=== PATIENT | male | born 1960 | race Caucasian/White ===

== ENCOUNTER 2018-04-10 06:22 | Emergency (ER) | payer BC ==
[2018-04-10] MEDS ORDERED: Al Hydrox/Mg Hydrox/Simet LIQ* 30 ML UDC PO ONE (06:39)
[2018-04-10] MEDS ORDERED: Famotidine IV* 10 MG/ML 2 ML (20 mg) IV ONE (06:39)
--- NOTE | 2018-04-10 06:53 | ED ---
Abdominal Pain/Male - HPI Summary HPI Summary: Patient is a 57-year-old male 1 PPD smoker presenting to the ED with epigastric pain and burning which has been intermittent 5 days. He states pain is worse after eating, better without. Not worse or better with positioning. He is also been endorsing 5 days of profuse diarrhea over 10 times per day. He denies any malodorous or yellow diarrhea. He states he has never had the diarrhea before, however has had a history of epigastric pain and tenderness and was diagnosed with peptic ulcers at [place] several months prior. He was given a 30 day supply of omeprazole. He was told to take this for one month only. Symptoms resolved while taking this medication, however have since returned. He is currently taking no medications. While pain is worse to the epigastric area, he is also complaining of diffuse tenderness throughout the abdomen which she describes as a "burning." He states he is otherwise healthy. Denies any travel or sick contacts. Symptoms resolved only temporarily with OTC Rolaids. He denies any chest pain or shortness of breath. Denies any headache. No recent unintentional weight loss, odynophagia, dysphagia. - History of Current Complaint Chief Complaint: EDNauseaVomitDiarrh Stated Complaint: ABD PAIN Time Seen by Provider: 04/10/18 06:30 Hx Obtained From: Patient Onset/Duration: Sudden Onset, Lasting Days Timing: Constant Severity Initially: Moderate Severity Currently: Moderate Pain Intensity: 0 Pain Scale Used: 0-10 Numeric Location: Diffuse, Other - worse to epigastric region Radiates: No Character: Burning Aggravating Factor(s): Food Alleviating Factor(s): NPO Associated Signs And Symptoms: Positive: Nausea, Vomiting, Diarrhea. Negative: Diaphoresis, Fever, Cough, Chest Pain, Blood in Stool - Risk Factors Testicular Torsion: Negative Cardiac Risk Factors: Negative - Allergies/Home Medications Allergies/Adverse Reactions: Allergies Allergy/AdvReac Type Severity Reaction Status Date / Time No Known Allergies Allergy Verified 04/10/18 06:25 PMH/Surg Hx/FS Hx/Imm Hx Previously Healthy: Yes - Immunization History Hx Pertussis Vaccination: No Immunizations Up to Date: Yes Infectious Disease History: No Infectious Disease History: Denies: Traveled Outside the [place] in Last 30 Days - Social History Occupation: Employed Full-time Lives: Alone Alcohol Use: None Hx Substance Use: No Substance Use Type: Reports: None Hx Tobacco Use: Yes Smoking Status (MU): Heavy Every Day Tobacco Smoker Review of Systems Constitutional: Negative Negative: Fever, Chills, Fatigue, Skin Diaphoresis Negative: Palpitations, Chest Pain Negative: Shortness Of Breath, Cough Positive: Abdominal Pain, Vomiting, Diarrhea, Nausea Genitourinary: Negative Positive: no symptoms reported, see HPI Negative: Arthralgia, Myalgia Skin: Negative Neurological: Negative All Other Systems Reviewed And Are Negative: Yes Physical Exam Triage Information Reviewed: Yes Vital Signs On Initial Exam: Initial Vitals Temp Pulse Resp BP Pulse Ox 98.2 F 81 16 148/89 97 04/10/18 06:25 04/10/18 06:25 04/10/18 06:25 04/10/18 06:25 04/10/18 06:25 Vital Signs Reviewed: Yes Appearance: Positive: Well-Appearing, Well-Nourished Skin: Positive: Warm, Skin Color Reflects Adequate Perfusion Head/Face: Positive: Normal Head/Face Inspection Eyes: Positive: EOMI, ROLANDO Neck: Positive: Supple, Nontender, No Lymphadenopathy Respiratory/Lung Sounds: Positive: Clear to Auscultation, Breath Sounds Present Cardiovascular: Positive: RRR, Pulses are Symmetrical in both Upper and Lower Extremities Abdomen Description: Positive: Soft, Other: - tenderness ot the epigastric region and diffuse tenderness throughout abdomen on deep palpation. Negative: CVA Tenderness (R), CVA Tenderness (L), Distended, Guarding Musculoskeletal: Positive: Strength/ROM Intact Neurological: Positive: Alert, Oriented to Person Place, Time, Speech Normal Psychiatric: Positive: Normal, Affect/Mood Appropriate AVPU Assessment: Alert Diagnostics - Vital Signs Vital Signs Temp Pulse Resp BP Pulse Ox 04/10/18 06:25 98.2 F 81 16 148/89 97 - Laboratory Result Diagrams: 04/10/18 06:58 04/10/18 06:58 Lab Statement: Any lab studies that have been ordered have been reviewed, and results considered in the medical decision making process. Abdominal Pain Fem Course/Dx - Course Course Of Treatment: On physical examination, there is diffuse tenderness to the abdomen on deep palpation, however not light palpation. There is tenderness on my palpation to the epigastric region. At home Rolaids with minimal relief. He is given famotidine and Maalox in the ED. Labs obtained and are WNL. He is given omeprazole as prescription and is encouraged to follow -up with GI. Discussed he may need an endoscopy for further evaluation of his chronic gastritis. Due to symptoms worsening after food intake, this is likely peptic ulcer as opposed to duodenal ulcer. He is encouraged to stop smoking as symptoms likely are worsening with smoking history. He is feeling improved after Maalox and famotidine. He is also given Zofran as prescription. Troponin 0.00. - Diagnoses Differential Diagnosis/HQI/PQRI: Peptic Ulcer Disease, Other - Gastritis, duodenal ulcer, GERD, abdominal pain, diarrhea Provider Diagnoses: Peptic ulcer disease Discharge - Sign-Out/Discharge Documenting (check all that apply): Patient Departure - Discharge Plan Condition: Stable Disposition: HOME Prescriptions: Al Hydrox/Mg Hydrox/Simet LIQ* [Maalox Plus*] 30 ml PO Q4H PRN #1 udc PRN Reason: Pain Omeprazole 40 mg PO DAILY #30 capsule. Ondansetron ODT TAB* [Zofran 4 MG Odt TAB*] 4 mg PO Q6H PRN #12 tab.odt MDD 4 PRN Reason: Nausea Patient Education Materials: Peptic Ulcer (ED), Diet for Stomach Ulcers and Gastritis (ED) Referrals: No Primary Care Phys,NOPCP [Primary Care Provider] - Sudeep Nicole MD [Medical Doctor] - Additional Instructions: Omeprazole once daily Maalox every 4 hours as needed for epigastric pain Zofran as needed for nausea Please follow-up with a GI specialist If any symptoms become worse, return to the ED - Billing Disposition and Condition Condition: STABLE Disposition: Home
[2018-04-10 07:19] LABS: ABS Basophils 0.1 10^3/ul (0-0.2); ABS Eosinophils 0.2 10^3/ul (0-0.6); ABS Lymphocytes 1.8 10^3/ul (1.0-4.8); ABS Monocytes 0.7 10^3/ul (0-0.8); ABS Neutrophils 6.9 10^3/ul (1.5-7.7); ABS Nucleated RBC 0 10^3/ul; Eosinophil % 1.8 % (0-6); Hematocrit 43 % (42-52); Hemoglobin 14.8 g/dl (14.0-18.0); Lymphocyte % 18.6 % (25-47); Mean Corpuscular HGB Conc 34 g/dl (31-36); Mean Corpuscular Hemoglobin 31 pg (27-31); Mean Corpuscular Volume 91 fL (80-94); Mean Platelet Volume 8.6 um3 (7.4-10.4); Nucleated Red Blood Cells % 0; Platelet Count 300 10^3/ul (150-450); Red Blood Count 4.77 10^6/ul (4.00-5.40); Red Cell Distribution Width 14 % (10.5-15); White Blood Count 9.6 10^3/ul (3.5-10.8)
[2018-04-10 07:33] LABS: EGFR Non-African American 90.4 (>60)
[2018-04-10] MEDS ORDERED: Ondansetron INJ* 2 MG/ML VIAL IV ONE (07:41)
[2018-04-10 08:34] VITALS: BP 148/98
== END 2018-04-10 08:32 | disposition home or self-care (01) ==
LOC: ED 06:22
DX: K27.9 Peptic ulcer, site unspecified, unspecified as acute or chronic, without hemorrhage or perforation (principal); Z72.0 Tobacco use
CPT/HCPCS: 36415; 80053; 82140; 83605; 83690; 83735; 84484; 85025; 86140; 87045; 87046; 87899; 96374; 96375; 96376; 99283; A9270-GY

== ENCOUNTER 2018-05-17 09:37 | Emergency (ER) | payer BC ==
[2018-05-17 09:54] VITALS: BP 150/100
--- NOTE | 2018-05-17 12:10 | UC ---
Abdominal Pain Male HPI - HPI Summary HPI Summary: Patient currently being worked up by GI for possible peptic ulcer and gastritis. Comes in today with worsening intermittent epigastric abdominal pain over the past 2-3 days. Denies fever but does have some nausea and watery stools. Has missed 2 days of work. - History of Current Complaint Chief Complaint: UCAbdominalPain Stated Complaint: ABD PAIN Time Seen by Provider: 05/17/18 09:59 Hx Obtained From: Patient Onset/Duration: Gradual Onset, Lasting Days, Still Present Timing: Intermittent Episodes Lasting: Severity Initially: Moderate Severity Currently: Moderate Pain Intensity: 3 Pain Scale Used: 0-10 Numeric Location: Epigastric Radiates: No Character: Cramping, Sharp Aggravating Factor(s): Nothing Alleviating Factor(s): Nothing Associated Signs And Symptoms: Positive: Decreased Appetite, Nausea, Diarrhea. Negative: Fever, Back Pain, Constipation, Blood in Stool, Urinary Symptoms - Allergies/Home Medications Allergies/Adverse Reactions: Allergies Allergy/AdvReac Type Severity Reaction Status Date / Time No Known Allergies Allergy Verified 05/17/18 09:54 PMH/Surg Hx/FS Hx/Imm Hx Previously Healthy: Yes - Surgical History Surgical History: Yes Surgery Procedure, Year, and Place: Gastric hernia, meniscus - Family History Known Family History: Positive: Hypertension - Social History Alcohol Use: None Substance Use Type: None Smoking Status (MU): Heavy Every Day Tobacco Smoker Type: Cigarettes Amount Used/How Often: 1 PPD Review of Systems Constitutional: Negative Respiratory: Negative Cardiovascular: Negative Gastrointestinal: Abdominal Pain, Diarrhea, Nausea Genitourinary: Negative All Other Systems Reviewed And Are Negative: Yes Physical Exam Triage Information Reviewed: Yes Appearance: Well-Appearing, No Pain Distress, Well-Nourished Vital Signs: Initial Vital Signs Temp 98.9 F 05/17/18 09:47 Pulse 96 05/17/18 09:47 Resp 16 05/17/18 09:47 BP 150/100 05/17/18 09:47 Pulse Ox 100 05/17/18 09:47 Vital Signs Reviewed: Yes Eyes: Positive: Conjunctiva Clear ENT: Positive: Hearing grossly normal Neck: Positive: Supple Respiratory Exam: Normal Cardiovascular Exam: Normal Abdomen Description: Positive: Soft, Other: - epigastric tenderness. Negative: CVA Tenderness (R), CVA Tenderness (L), Distended, Guarding Bowel Sounds: Positive: Present Musculoskeletal: Positive: No Edema Neurological: Positive: Alert Psychological: Positive: Age Appropriate Behavior Skin: Negative: rashes Abd Pain Male Course/Dx - Course Course Of Treatment: ADVISED TO KEEP HIS GI FOLLOW-UP. DISCUSSED POSSIBILITY OF PANCREATITIS. PATIENT DECLINES TRANSFER TO ED TODAY. ADVISED TO GO TO THE ED WITHOUT FAIL IF HE DEVELOPS WORSENING PAIN, NAUSEA, FEVER OR ANY OTHER CONCERNING SYMPTOMS. NOTE FOR WORK PROVIDED. DISCUSSED WITH PATIENT THE NEED FOR COLONOSCOPY IN ADDITION TO HIS SCHEDULED EGD COMING UP. STATES HE WILL ADDRESS THIS WITH HIS GI DOCTOR AT HIS APPOINTMENT. - Differential Dx/Clinical Impression Provider Diagnoses: EPIGASTRIC ABDOMINAL PAIN Discharge - Sign-Out/Discharge Documenting (check all that apply): Patient Departure All imaging exams completed and their final reports reviewed: No Studies - Discharge Plan Condition: Stable Disposition: HOME Patient Education Materials: Abdominal Pain (ED) Forms: *Work Release Referrals: Sudeep Nicole MD [Primary Care Provider] - (KEEP YOUR APPT SCHEDULED) Additional Instructions: GO TO THE ED WITHOUT FAIL IF YOU DEVELOP WORSENING PAIN, FEVER, NAUSEA, BLOOD PER RECTUM OR ANY OTHER CONCERNING SYMPTOMS. - Billing Disposition and Condition Condition: STABLE Disposition: Home
== END 2018-05-17 10:45 | disposition home or self-care (01) ==
LOC: UCEAST 09:37
DX: R10.13 Epigastric pain (principal); R11.0 Nausea; R19.7 Diarrhea, unspecified; F17.210 Nicotine dependence, cigarettes, uncomplicated
CPT/HCPCS: 99211; G0463

== ENCOUNTER 2018-09-07 06:09 | Emergency (ER) | payer BC ==
[2018-09-07] MEDS ORDERED: Ibuprofen TAB* 400 MG PO ONE (06:21)
[2018-09-07] MEDS ORDERED: Amoxicillin/Clavulanate TAB* 875 MG PO ONE (06:22)
--- NOTE | 2018-09-07 06:23 | ED ---
Throat Pain/Nasal Congestion - HPI Summary HPI Summary: This patient is a 58 year old M presenting to ED with a chief complaint of R ear pain since 0500 this morning. He states that he had dx of the flu 3 days ago and has been taking his abx. The patient rates the pain 4/10 in severity. Symptoms aggravated by nothing. Symptoms alleviated by nothing. Patient reports fever (100.5F). - History of Current Complaint Chief Complaint: EDEarPain Time Seen by Provider: 09/07/18 06:17 Hx Obtained From: Patient Onset/Duration: Sudden Onset, Lasting Hours, Still Present Severity: Moderate - 4/10 - Allergies/Home Medications Allergies/Adverse Reactions: Allergies Allergy/AdvReac Type Severity Reaction Status Date / Time No Known Allergies Allergy Verified 08/04/18 15:46 PMH/Surg Hx/FS Hx/Imm Hx Endocrine/Hematology History: Denies: Hx Diabetes Cardiovascular History: Denies: Hx Hypertension - Surgical History Surgery Procedure, Year, and Place: Gastric hernia, meniscus Infectious Disease History: No Infectious Disease History: Denies: Traveled Outside the [place] in Last 30 Days - Family History Known Family History: Positive: Hypertension - Social History Alcohol Use: None Hx Substance Use: No Substance Use Type: Reports: None Hx Tobacco Use: Yes Smoking Status (MU): Heavy Every Day Tobacco Smoker Type: Cigarettes Amount Used/How Often: 1 PPD Review of Systems Positive: Fever, Other - flu symptoms Positive: Ear Ache - right All Other Systems Reviewed And Are Negative: Yes Physical Exam - Summary Physical Exam Summary: VITAL SIGNS: Reviewed. GENERAL: Patient is a well-developed and nourished MALE who is lying comfortable in the stretcher. Patient is not in any acute respiratory distress. HEAD AND FACE: No signs of trauma. No ecchymosis, hematomas or skull depressions. No sinus tenderness. EYES: PERRLA, EOMI x 2, No injected conjunctiva, no nystagmus. EARS: Hearing grossly intact. R ear has tragal tenderness, hyperemia of external ear canal and TM. MOUTH: Oropharynx within normal limits. NECK: Supple, trachea is midline, no adenopathy, no JVD, no carotid bruit, no c- spine tenderness, neck with full ROM. No neck pain, no nuchal rigidity, no meningeal signs. CHEST: Symmetric, no tenderness at palpation LUNGS: Clear to auscultation bilaterally. No wheezing or crackles. CVS: Regular rate and rhythm, S1 and S2 present, no murmurs or gallops appreciated. ABDOMEN: Soft, non-tender. No signs of distention. No rebound no guarding, and no masses palpated. Bowel sounds are normal. EXTREMITIES: FROM in all major joints, no edema, no cyanosis or clubbing. NEURO: Alert and oriented x 3. No acute neurological deficits. Speech is normal and follows commands. SKIN: Dry and warm Triage Information Reviewed: Yes Vital Signs On Initial Exam: Initial Vitals Temp Pulse Resp BP Pulse Ox 100.2 F 106 22 138/79 95 09/07/18 06:12 09/07/18 06:12 09/07/18 06:12 09/07/18 06:12 09/07/18 06:12 Vital Signs Reviewed: Yes Diagnostics - Vital Signs Vital Signs Temp Pulse Resp BP Pulse Ox 09/07/18 06:12 100.2 F 106 22 138/79 95 - Laboratory Lab Statement: Any lab studies that have been ordered have been reviewed, and results considered in the medical decision making process. EENT Course/Dx - Course Assessment/Plan: This patient is a 58 year old M presenting to ED with a chief complaint of R ear pain since 0500 this morning. This patient will be discharged with dx of otitis media and otitis externa of the right ear and prescription of augmentin and motrin. Patient understands and agrees with this plan. - Differential Diagnoses Differential Diagnoses: Otitis Externa, Otitis Media - Diagnoses Provider Diagnoses: Otitis media of right ear, Otitis externa of right ear Discharge - Sign-Out/Discharge Documenting (check all that apply): Patient Departure - discharge Patient Received Moderate/Deep Sedation with Procedure: No - Discharge Plan Condition: Stable Disposition: HOME Prescriptions: Amoxicillin/Clavulanate TAB* [Augmentin TAB 875*] 875 mg PO BID #20 tab Ibuprofen TAB* [Motrin TAB* 800 MG] 800 mg PO Q6H PRN #30 tab PRN Reason: Fever/Pain Patient Education Materials: Ear Infection (ED) Referrals: Sudeep Nicole MD [Primary Care Provider] - (Follow up in 1-2 days.) Additional Instructions: RETURN TO THE EMERGENCY DEPARTMENT FOR CHANGING OR WORSENING SYMPTOMS. FOLLOW UP WITH PCP IN 1-2 DAYS. - Attestation Statements Document Initiated by Scribe: Yes Documenting Scribe: Ramsey Madrid Provider For Whom Scribe is Documenting (Include Credential): Lexus Narvaez MD Scribe Attestation: I, Ramsey Madrid, scribed for Lexus Narvaez MD on 09/07/18 at 0626. Status of Scribe Document: Ready
[2018-09-07] MEDS ORDERED: Ciproflox/Dexameth OTIC.SUSP* 7.5 ML BTL ONE (06:26)
[2018-09-07] MEDS ORDERED: Oxymetazoline 0.05% NASAL SPR* 15 ML BTL ONE (06:26)
[2018-09-07 06:48] VITALS: BP 123/88
[2018-09-07] MEDS ORDERED: Ciproflox/Dexameth OTIC.SUSP* 7.5 ML BTL RIGHT EAR SCH (09:00)
[2018-09-07] MEDS ORDERED: Oxymetazoline 0.05% NASAL SPR* 15 ML BTL BOTH NARES SCH (09:00)
== END 2018-09-07 06:46 | disposition home or self-care (01) ==
LOC: ED 06:09
DX: H66.91 Otitis media, unspecified, right ear (principal); H60.91 Unspecified otitis externa, right ear
CPT/HCPCS: 99282; A9270-GY

== ENCOUNTER 2019-01-23 06:27 | Emergency (ER) | payer BC ==
[2019-01-23] MEDS ORDERED: Pantoprazole IV* 40 MG IV ONE (06:48)
[2019-01-23] MEDS ORDERED: NS 0.9% 1000 ML** 1,000 ML IV ONE ×2 (06:48→07:26)
[2019-01-23] MEDS ORDERED: Ondansetron INJ* 2 MG/ML VIAL IV ONE (06:49)
--- NOTE | 2019-01-23 06:51 | ED ---
GI/ HPI - HPI Summary HPI Summary: 58 year old male presents with abdominal pain for the past couple days. He admits to nausea, vomiting, and diarrhea. He did not eat anything different. He normal follows a bland diet due to history of GERD. no fever. no recent antibiotic use. no blood in his stool. no change in chronic cough. no uti symptoms. no chest pain or SOB. abd pain is in epigastric region. states abd pain feels like nausea. has history of GERD as only medical conditions. has history of hernia repair. had episode of vomiting and diarrhea this morning. - History of Current Complaint Chief Complaint: EDAbdPain Time Seen by Provider: 01/23/19 06:39 Stated Complaint: STOMACH PAIN PER PT Pain Intensity: 6 - Allergy/Home Medications Allergies/Adverse Reactions: Allergies Allergy/AdvReac Type Severity Reaction Status Date / Time No Known Allergies Allergy Verified 01/23/19 07:38 PMH/Surg Hx/FS Hx/Imm Hx Endocrine/Hematology History: Denies: Hx Diabetes Cardiovascular History: Denies: Hx Hypertension - Surgical History Surgery Procedure, Year, and Place: Gastric hernia, meniscus Infectious Disease History: No Infectious Disease History: Denies: Traveled Outside the [place] in Last 30 Days - Family History Known Family History: Positive: Hypertension - Social History Alcohol Use: None Hx Substance Use: No Substance Use Type: Reports: None Hx Tobacco Use: Yes Smoking Status (MU): Heavy Every Day Tobacco Smoker Type: Cigarettes Amount Used/How Often: 1 PPD Review of Systems Negative: Fever Negative: Chest Pain Negative: Shortness Of Breath Positive: Abdominal Pain, Vomiting, Diarrhea, Nausea All Other Systems Reviewed And Are Negative: Yes Physical Exam Triage Information Reviewed: Yes Vital Signs On Initial Exam: Initial Vitals Temp Pulse Resp BP Pulse Ox 98.0 F 88 17 140/95 96 01/23/19 06:28 01/23/19 06:28 01/23/19 06:28 01/23/19 06:28 01/23/19 06:28 Vital Signs Reviewed: Yes Appearance: Positive: Well-Appearing Skin: Positive: Warm, Dry Head/Face: Positive: Normal Head/Face Inspection Eyes: Positive: Normal, Conjunctiva Clear ENT: Positive: Pharynx normal Respiratory/Lung Sounds: Positive: Clear to Auscultation, Breath Sounds Present Cardiovascular: Positive: Normal, RRR Abdomen Description: Positive: Soft, Other: - tenderness RUQ pain Bowel Sounds: Positive: Present Musculoskeletal: Positive: Normal Neurological: Positive: Normal Psychiatric: Positive: Normal Diagnostics - Vital Signs Vital Signs Temp Pulse Resp BP Pulse Ox 01/23/19 06:28 98.0 F 88 17 140/95 96 - Laboratory Result Diagrams: 01/23/19 06:58 01/23/19 06:58 Lab Statement: Any lab studies that have been ordered have been reviewed, and results considered in the medical decision making process. - Ultrasound No standard instances Ultrasound Interpretation Completed By: Radiologist Summary of Ultrasound Findings: IMPRESSION: #. Coarsened hepatic echotexture with regions of increased echogenicity; consider. hepatosteatosis and hepatitis. #. Top normal gallbladder wall thickness without additional sonographic abnormality of the. gallbladder. Re-Evaluation - Re-Evaluation First Eval Re-Evaluation Time: 07:40 Change: Improved Comment: feeling better after fluids and zofran Second Eval Re-Evaluation Time: 08:34 Change: Improved Comment: feeling better, discussed results GIGU Course/Dx - Course Course Of Treatment: 58 year old male presents with abdominal pain for the past couple days. He admits to nausea, vomiting, and diarrhea. He did not eat anything different. He normal follows a bland diet due to history of GERD. no fever. no recent antibiotic use. no blood in his stool. no change in chronic cough. no uti symptoms. no chest pain or SOB. abd pain is in epigastric region. states abd pain feels like nausea. has history of GERD as only medical conditions. has history of hernia repair. on exam has tenderness RUQ. no rebound. wbc normal. sodium 134. crp normal. lactic 2.2 urine no infection. gallbladder ultrasound shows normal gallbladder and echogencitiy of liver. lfts are normal so can follow up with primary about such. likely has gastroenteritis. will give zofran for nausea. told to encourage fluids and follow brat diet. told will call if stool culture comes back positive for anything. patient understand and agrees with plan. - Diagnoses Differential Diagnoses - Male: Gall Bladder Disease, Gastroenteritis (Viral), Urinary Tract Infection Provider Diagnoses: Nausea vomiting and diarrhea, Abdominal pain Discharge - Sign-Out/Discharge Documenting (check all that apply): Patient Departure Patient Received Moderate/Deep Sedation with Procedure: No - Discharge Plan Condition: Good Disposition: HOME Prescriptions: Ondansetron ODT TAB* [Zofran 4 MG Odt TAB*] 4 mg PO Q6H PRN #16 tab.odt PRN Reason: Nausea Patient Education Materials: Gastroenteritis (ED) Forms: *Work Release Referrals: Sudeep Nicole MD [Primary Care Provider] - Additional Instructions: symptoms likely due to gastroenteritis Can take Zofran every 6 hours as needed for nausea Drink small amounts of fluid as tolerated When able to eat follow BRAT diet: Bananas, rice, applesauce, toast Take Tylenol for pain as needed every 6 hours Follow up with primary within 5 days Return to ED if develop any new or worsening symptoms - Billing Disposition and Condition Condition: GOOD Disposition: Home
[2019-01-23 07:16] LABS: ABS Eosinophils 0.2 10^3/ul (0-0.6); ABS Lymphocytes 1.8 10^3/ul (1.0-4.8); ABS Monocytes 0.5 10^3/ul (0-0.8); ABS Neutrophils 3.8 10^3/ul (1.5-7.7); Eosinophil % 2.5 %; Hematocrit 43 % (42-52); Hemoglobin 15.3 g/dL (14.0-18.0); Lymphocyte % 28.9 %; Mean Corpuscular HGB Conc 35 g/dL (31-36); Mean Corpuscular Hemoglobin 32 pg (27-31); Mean Corpuscular Volume 90 fL (80-94); Mean Platelet Volume 8.3 fL (7.4-10.4); Nucleated Red Blood Cells % 0.1; Platelet Count 254 10^3/uL (150-450); Red Blood Count 4.83 10^6 /uL (4.18-5.48); Red Cell Distribution Width 14 % (10-15); White Blood Count 6.3 10^3/uL (3.5-10.8)
[2019-01-23] MEDS ORDERED: Ketorolac INJ* 30 MG/ML 1 ML VIAL IV PUSH ONE (07:26)
[2019-01-23 07:35] LABS: Albumin 3.9 g/dL (3.2-5.2); Albumin/Globulin Ratio 1.2 (1-3); BUN/Creatinine Ratio 14.4 (8-20); C Reactive Protein 5.16 mg/L (<8.01); Calcium 9.2 mg/dL (8.6-10.3); EGFR African American 104.9 (>60); EGFR Non-African American 86.7 (>60); Globulin 3.2 g/dL (2-4); Potassium 3.6 mmol/L (3.5-5.0); Total Bilirubin 0.6 mg/dL (0.2-1.0); Total Protein 7.1 g/dL (6.4-8.9)
[2019-01-23 07:39] LABS: Urine Appearance Clear; Urine Bilirubin Negative (Negative); Urine Blood Negative (Negative); Urine Color Yellow; Urine Glucose Negative (Negative); Urine Ketones Negative (Negative); Urine Nitrite Negative (Negative); Urine Protein Negative (Negative); Urine Specific Gravity 1.006 (1.010-1.030); Urine Urobilinogen Negative (Negative)
[2019-01-23 08:41] VITALS: BP 138/85
== END 2019-01-23 08:40 | disposition home or self-care (01) ==
LOC: ED 06:27
DX: R10.13 Epigastric pain (principal); R11.2 Nausea with vomiting, unspecified; R19.7 Diarrhea, unspecified; F17.210 Nicotine dependence, cigarettes, uncomplicated
CPT/HCPCS: 36415; 76705; 80053; 81003; 83605; 83690; 85025; 86140; 87045; 87046; 87493; 87899; 96361; 96374; 96375; 99282; J1885; J2405

== ENCOUNTER 2019-06-16 19:38 | Emergency (ER) | payer BC ==
--- OUTSIDE RECORDS SUMMARY | 2019-06-16 19:54 | XMS REPORT | Summary of Care ---
:1960 Author Organization [facility] Address [address] [facility] [place] [address] Care Team Providers Name Role Phone Christy Rosado MD Primary Care Provider Reason for Referral Specialty Consult (Routine) Status Reason Specialty Diagnoses / Referred By Referred To Procedures Contact Contact Pending Review Pulmonary Diagnoses Tobacco use disorder Josue Lugo Pulmonary Marcela, SOAP MAKER [facility] [address] [place] [phone] Phone: Scheduling Instructions To schedule please call: Option 5 Diagnostic Testing (Routine) Status Reason Specialty Diagnoses / Referred By Referred To Procedures Contact Contact Authorized Diagnoses Tobacco use disorder Marcela Lugo, Procedures PFT ROUTINE STUDIES SOAP [facility]ER [address] [place] [address] Reason for Visit Reason Comments Physical w/ labs Encounter Details Date Type Department Care Team Description 05/22/2019 Office Visit [place] Marcela Ramey, Physical exam ( Primary Dx); Practice SOAP MAKER Screening for lipid disorders; [address] Screening for diabetes mellitus; [place] [address] Need for vaccination; [phone] Tobacco use disorder Allergies No Known Allergiesdocumented as of this encounter (statuses as of 05/22/2019) Medications Medication Sig Dispensed Refills Start Date End Date Status Omeprazole 40 MG take 1 capsule 0 04/10/2018 05/22/2019 Discontinued Oral CAPSULE by mouth once DELAYED RELEASE daily ondansetron DISSOLVE 1 0 04/10/2018 05/22/2019 Discontinued (ZOFRAN ODT) 4 MG TABLET ON Oral TABLET TONGUE EVERY 6 DISPERSIBLE HOURS UP TO 4 TIMES DAILY NEEDED FOR NAUSEA documented as of this encounter (statuses as of 05/22/2019) Active Problems Problem Noted Date Gastroesophageal reflux disease without esophagitis 05/22/2019 BMI 30.0-30.9,adult 06/21/2014 Overview: sustained wt reduction with portion control and sustained routine exercise. documented as of this encounter (statuses as of 05/22/2019) Immunizations Name Administration Dates Next Due Hepatitis B Vaccine Adult 03/22/2016, 10/20/2015, 09/08/2015 Influenza (IM) Preservative Free 05/22/2019, 05/10/2016 PNEUMOCOCCAL POLYSACCHARIDE VACCINE 05/22/2019 TDAP Vaccine 05/10/2016 documented as of this encounter Social History Tobacco Use Types Packs/Day Years Used Date Current Every Day Smoker Cigarettes 0.75 40 Smokeless Tobacco: Never Used Comments: 2 ppd for 10 years then 0.75 since Alcohol Use Drinks/Week oz/Week Comments No 0 Standard drinks or equivalent 0.0 Sex Assigned at Date Recorded Not on file Job Start Date Occupation Industry Not on file Not on file Not on file Travel History Travel Start Travel End No recent travel history available. documented as of this encounter Last Filed Vital Signs Vital Sign Reading Time Taken Comments Blood Pressure 124/78 05/22/2019 4:00 PM EDT Pulse 85 05/22/2019 4:00 PM EDT Temperature 37.4 05/22/2019 4:00 PM EDT C (99.4 F) Respiratory Rate - - Oxygen Saturation 98% 05/22/2019 4:00 PM EDT Inhaled Oxygen Concentration - - Weight 118.8 kg (262 lb) 05/22/2019 4:00 PM EDT Height 182.9 cm (6') 05/22/2019 4:00 PM EDT Body Mass Index 35.53 05/22/2019 4:00 PM EDT documented in this encounter Patient Instructions Patient InstructionsMarcela Lugo NP - 05/22/2019 4:00 PM EDTGet on waiting list at pharmacy for shingles vaccine. Schedule fasting labs. Schedule low dose ct for lung cancer screening. You received flu and pneumonia vaccines today - You may feel under the weather - you can take tylenol and motrin over the counter for this. This is an expected immune response to the vaccine. Schedule pulmonary function testing. Follow up in one year or sooner if needed. Exercise is recommended 150 minutes weekly: 30 minutes five days a week of moderate exercise such as walking. In addition is it recommended you have two days weekly of working all your major muscle groups (arms, legs) such as with weight lifting or other exercise. Maintain a healthy lifestyle: -Get 30 minutes of activity every day, most days of the week. -Eat a variety of healthy foods - including whole grain breads, low fat dairy products, beans, lean meats, and fish. Eat fruits and vegetables every day. -Maintain a healthy weight -Limit alcohol - 1 drink per day for women and 2 drinks per day for men. -Get adequate sleep at night, around 8 hours. Please consider smoking cessation - there are a lot of tools and medications to help you quit. Please let me know if you are interested in any of these methods and I can help you.Electronically signed by Marcela Lugo NP at 4:38 PM EDT documented in this encounter Progress Notes Marcela Lugo NP - 05/22/2019 4:00 PM EDT PATIENT: John Rivas : 1960 DATE OF SERVICE: 05/22/2019 CHIEF COMPLAINT: Chief Complaint Patient presents with Physical w/ labs Subjective HISTORY OF PRESENT ILLNESS: John Rivas is a 58-y.o. male. HPI Patient here for yearly physical. Current concerns: none, doing well. GERD under control with diet. Still smoking 3/4 ppd. Getting up at night to urinate - better when no drinking 2 hours before bed. Colonoscopy (50-75): August 2018 - normal. Some polyps removed, benign. Next due in 5 years. PSA (50-75; or 40+): May 2018 - 2.17 normal. AUA Prostate Symptom Score: Over the past month, how often... None (0) Less than 1 in 5 (1) Less than half ( 2) Half (3) More than Half (4) Almost Always (5) Incomplete emptying 2 Frequency (<2 hours) 2 Intermittency (started/stopped) 1 Urgency 1 Weak Stream 1 Straining 0 Nocturia 2 Total Score = 7 0-7 = mild 8-19 = moderate 20-35 = severe LDCT (55-80; 30 pack year hx in last 15 yrs; yearly): never had Eye Exam: about one year, no problems Dental Exam: wears dentures. Specialists: GI - Dr. Nicole - for GERD. Diet: bland foods for gerd, no fried foods, no dairy (cheese is fine, nothing liquidy), no spicey foods or citrusy foods. Mostly mashed potatoes and baked items. Breakfast: nothing Lunch: chicken sandwich [employer] 2 mcchickens, no drink, Dinner: hoagie (half) club with ham and turkey and roast beef, no sides, water Snacks: none Water: 3 Exercise: Work keeps him busy and moving. Past Medical History: Diagnosis Date BMI 30.0-30.9,adult 06/21/2014 sustained wt reduction with portion control and sustained routine exercise. GERD (gastroesophageal reflux disease) Family History Problem Relation Age of Onset Cancer Mother breast cancer Heart Father at home, assumed heart Diabetes Brother Cancer Brother prostate cancer No Known Problems Brother No Known Problems Brother No Known Problems Brother No Known Problems Brother Diabetes Sister No Known Problems Sister No Known Problems Daughter Diabetes Other nieces, nephews No Known Problems Daughter No Known Problems Daughter Diabetes Maternal Grandmother No current outpatient medications on file. No current facility-administered medications for this visit. No Known Allergies Social History Socioeconomic History Marital status: Single Spouse name: Not on file Number of children: Not on file Years of education: Not on file Highest education level: Not on file Occupational History Not on file Social Needs Financial resource strain: Not on file Food insecurity: Worry: Not on file Inability: Not on file Transportation needs: Medical: Not on file Non-medical: Not on file Tobacco Use Smoking status: Current Every Day Smoker Packs/day: 0.75 Years: 40.00 Pack years: 30.00 Types: Cigarettes Smokeless tobacco: Never Used Tobacco comment: 2 ppd for 10 years then 0.75 since Substance and Sexual Activity Alcohol use: No Alcohol/week: 0.0 standard drinks Drug use: No Sexual activity: Not Currently Partners: Female Lifestyle Physical activity: Days per week: Not on file Minutes per session: Not on file Stress: Not on file Relationships Social connections: Talks on phone: Not on file Gets together: Not on file Attends latter day service: Not on file Active member of club or organization: Not on file Attends meetings of clubs or organizations: Not on file Relationship status: Not on file Intimate partner violence: Fear of current or ex partner: Not on file Emotionally abused: Not on file Physically abused: Not on file Forced sexual activity: Not on file Other Topics Concern Back Care Not Asked Bike Helmet Not Asked Blood Transfusions No Caffeine Concern Not Asked Exercise No 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 Hobby Hazards Not Asked International Travel Not Asked Service Not Asked Occupational Exposure Not Asked Seat Belt Not Asked Self-Exams Not Asked Sleep Concern Not Asked Special Diet Not Asked Stress Concern Not Asked Weight Concern Not Asked Social History Narrative seperated 4 children are adults and out of the house. 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 HENT: Negative for congestion, sinus pain and sore throat. Eyes: Negative for pain. Respiratory: Negative for cough, shortness of breath and wheezing. Cardiovascular: Negative for chest pain, palpitations and leg swelling. Gastrointestinal: Negative for abdominal pain, blood in stool, constipation, diarrhea, nausea and vomiting. Genitourinary: Positive for frequency and urgency. Negative for dysuria, flank pain and hematuria. Musculoskeletal: Negative for back pain, joint pain and myalgias. Neurological: Negative for dizziness, tingling, sensory change, weakness and headaches. Psychiatric/Behavioral: Negative for depression. The patient is not nervous/ anxious. Objective PHYSICAL EXAM: VITALS: BP 124/78 (BP Location: Left arm, Patient Position: Sitting) | Pulse 85 | Temp 99.4 F(37.4 C) | Ht 6' (1.829 m) | Wt 262 lb (118.8 kg) | SpO2 98% | BMI 35.53 kg/m Body massindex is 35.53 kg/m. Physical Exam Vitals signs and nursing note reviewed. Constitutional: Appearance: Normal appearance. He is well-developed. HENT: Head: Normocephalic and atraumatic. Right Ear: Hearing, tympanic membrane, ear canal and external ear normal. Left Ear: Hearing, tympanic membrane, ear canal and external ear normal. Nose: Nose normal. Mouth/Throat: Pharynx: Uvula midline. Eyes: Pupils: Pupils are equal, round, and reactive to light. Neck: Musculoskeletal: Normal range of motion and neck supple. Cardiovascular: Rate and Rhythm: Normal rate and regular rhythm. Heart sounds: Normal heart sounds. No murmur. No friction rub. No gallop. Pulmonary: Effort: Pulmonary effort is normal. No respiratory distress. Breath sounds: Decreased air movement present. Decreased breath sounds ( throughout) present. Abdominal: General: Abdomen is protuberant. Bowel sounds are normal. Palpations: Abdomen is soft. Tenderness: There is no tenderness. Musculoskeletal: Normal range of motion. Lymphadenopathy: Head: Right side of head: No submental, submandibular, tonsillar, preauricular or posterior auricular adenopathy. Left side of head: No submental, submandibular, tonsillar, preauricular or posterior auricular adenopathy. Cervical: No cervical adenopathy. Upper Body: Right upper body: No supraclavicular adenopathy. Left upper body: No supraclavicular adenopathy. Skin: General: Skin is warm and dry. Neurological: Mental Status: He is alert and oriented to person, place, and time. Psychiatric: Speech: Speech normal. ASSESSMENT / IMPRESSION: ICD-9-CM ICD-10-CM 1. Physical exam V70.9 Z00.00 2. Screening for lipid disorders V77.91 Z13.220 LIPID PROFILE 3. Screening for diabetes mellitus V77.1 Z13.1 COMPREHENSIVE METABOLIC PANEL 4. Need for vaccination V05.9 Z23 [place] FLU VACCINE PRES FREE 3YRS+ ADULT (DX Z23) ADMINISTRATION VACCINE SINGLE [place] PNEUMOVAX(DX CODE Z23) ADMINISTRATION VACCINE EACH ADDITIONAL X__UNITS CANCELED: REFER TO LUNG CANCER SCREENING CLINIC 5. Tobacco use disorder 305.1 F17.200 PFT ROUTINE STUDIES REFER TO LUNG CANCER SCREENING CLINIC Plan 1. Screening for lipid disorders - LIPID PROFILE; Future 2. Screening for diabetes mellitus - COMPREHENSIVE METABOLIC PANEL; Future 3. Need for vaccination - [place] FLU VACCINE PRES FREE 3YRS+ ADULT (DX Z23) - ADMINISTRATION VACCINE SINGLE - [place] PNEUMOVAX(DX CODE Z23) - ADMINISTRATION VACCINE EACH ADDITIONAL X__UNITS 4. Tobacco use disorder - PFT ROUTINE STUDIES; Future - REFER TO LUNG CANCER SCREENING CLINIC; Future Nicotine addiction. We discussed the importance of smoking cessation as well as different ways to approach it. The patient is not ready, he does not recognize a need for change or is resistant to change. A total of 7 minutes was spent with the patient today talking about smoking cessation. 5. Physical exam Get on waiting list at pharmacy for shingles vaccine. Schedule fasting labs. Schedule low dose ct for lung cancer screening. You received flu and pneumonia vaccines today - You may feel under the weather - you can take tylenol and motrin over the counter for this. This is an expected immune response to the vaccine. Schedule pulmonary function testing. Follow up in one year or sooner if needed. Exercise is recommended 150 minutes weekly: 30 minutes five days a week of moderate exercise such as walking. In addition is it recommended you have two days weekly of working all your major muscle groups (arms, legs) such as with weight lifting or other exercise. Maintain a healthy lifestyle: -Get 30 minutes of activity every day, most days of the week. -Eat a variety of healthy foods - including whole grain breads, low fat dairy products, beans, lean meats, and fish. Eat fruits and vegetables every day. -Maintain a healthy weight -Limit alcohol - 1 drink per day for women and 2 drinks per day for men. -Get adequate sleep at night, around 8 hours. Please consider smoking cessation - there are a lot of tools and medications to help you quit. Please let me know if you are interested in any of these methods and I can help you. Author: Marcela Lugo NP 05/22/2019 16:46 documented in this encounter Plan of Treatment Date Type Specialty Care Team Description 06/08/2019 Lab Internal Medicine 06/08/2019 Nurse/Clinical Support Internal Medicine Name Type Priority Associated Diagnoses Order Schedule COMPREHENSIVE METABOLIC Lab Routine Screening for diabetes Expected: PANEL mellitus 05/22/2019 (Approximate), Expires: 05/22/2020 LIPID PROFILE Lab Routine Screening for lipid Expected: disorders 05/22/2019 (Approximate), Expires: 05/22/2020 ADMINISTRATION VACCINE Procedures Routine Need for vaccination Ordered: SINGLE 05/22/2019 ADMINISTRATION VACCINE Procedures Routine Need for vaccination Ordered: EACH ADDITIONAL X__UNITS 05/22/2019 PFT ROUTINE STUDIES Pulmonary Routine Tobacco use disorder Expected: 05/22/2019, Expires: 11/18/2019 Name Type Priority Associated Diagnoses Order Schedule REFER TO LUNG CANCER Referral Routine Tobacco use disorder Expected: 2018, SCREENING CLINIC Expires: 05/22/2020 Health Maintenance Due Date Last Done Comments ZOSTER IMMUNIZATION SERIES 2010 (1 of 2) LUNG CANCER SCREENING 2015 DIABETES SCREENING 05/18/2019 05/18/2018, 05/18/2018, 05/10/2016, Additional history exists DEPRESSION SCREENING 05/22/2020 05/22/2019 LIPID DISORDER SCREENING 05/18/2023 05/18/2018, 05/10/2016 COLONOSCOPY SCREENING 08/22/2028 08/22/2018 INFLUENZA VACCINE Completed 05/22/2019, 05/10/2016 PNEUMOCOCCAL 0-64 YRS Completed 05/22/2019 HPV IMMUNIZATION SERIES Aged Out No longer eligible based on patient's age to complete this topic MENINGOCOCCAL VACCINE IMM Aged Out No longer eligible based on patient's age to complete this topic documented as of this encounter Procedures Procedure Name Priority Date/Time Associated Diagnosis Comments COLONOSCOPY Routine 08/22/2018 documented in this encounter Results COLONOSCOPY (08/22/2018) Colonoscopy polyps, 5 year [facility] POCT screening Performing Organization Address [facility] [address] [place] [phone] documented in this encounter Visit Diagnoses Diagnosis Physical exam - Primary Screening for lipid disorders Screening for diabetes mellitus Need for vaccination Need for prophylactic vaccination and inoculation against unspecified single disease Tobacco use disorder documented in this encounter Insurance Payer Benefit Plan / Subscriber ID Effective Dates Phone Address Type Group BCBS NATIONAL BCBS NATIONAL xxxxxxxxxxxx 2015-Present Blue Cross/Blue Shield Guarantor Name Account Type Relation to Date of Phone Billing Patient Address John Rivas Personal/Family 1960 [address] ([address] [phone] [facility] [id number] documented as of this encounter"
--- OUTSIDE RECORDS SUMMARY | 2019-06-16 19:54 | XMS REPORT | Summary of Care ---
:1960 Author Organization [facility] Address [address] [place] [address] Care Team Providers Name Role Phone Christy Rosado MD Primary Care Provider Reason for Referral Specialty Consult (Routine) Status Reason Specialty Diagnoses / Referred By Referred To Procedures Contact Contact Pending Review Diagnoses Chronic obstructive pulmonary disease, unspecified COPD type (HCC) Marcela Lugo NP [address] [place] [address] Scheduling Instructions Health System or [place]. Reason for Visit Reason Comments Follow Up PFT and cholesterol Encounter Details Date Type Department Care Team Description 06/15/2019 Office Visit Cindy Lugo Chronic obstructive pulmonary disease, unspecified COPD type (HCC) (Primary Dx); Practice [facility] Tobacco use disorder; [address] [facility] [place] [address] [place] [address] [phone] Allergies No Known Allergiesdocumented as of this encounter (statuses as of 06/16/2019) Medications Medication Sig Dispensed Refills Start Date End Date Status albuterol HFA Take 2 Puffs by 1 Each 3 06/13/2019 Active (VENTOLIN) 108 (90 inhalation EVERY Base) MCG/ACT FOUR HOURS Inhalation Aero NEEDED (shortness SolnIndications: of Chronic obstructive breath/wheezing). pulmonary disease, unspecified COPD type (HCC) Spacer/Aero-Holding 1 Each by Does not 1 Each 0 06/13/2019 Active Chambers (PRO COMFORT apply route SPACER ADULT) Does NEEDED (with not apply inhaler). MiscIndications: Chronic obstructive pulmonary disease, unspecified COPD type (HCC) documented as of this encounter (statuses as of 06/16/2019) Active Problems Problem Noted Date Mixed hyperlipidemia 06/16/2019 COPD (chronic obstructive pulmonary disease) 06/13/2019 Tobacco use disorder 06/08/2019 Gastroesophageal reflux disease without esophagitis 05/22/2019 BMI 35.0-35.9,adult 06/21/2014 Overview: sustained wt reduction with portion control and sustained routine exercise. documented as of this encounter (statuses as of 06/16/2019) Immunizations Name Administration Dates Next Due Hepatitis [...] Sign Reading Time Taken Comments Blood Pressure 136/62 06/15/2019 2:01 PM EST Pulse 82 06/15/2019 2:01 PM EST Temperature - - Respiratory Rate - - Oxygen Saturation 95% 06/15/2019 2:01 PM EST Inhaled Oxygen Concentration - - Weight 120.2 kg (265 lb) 06/15/2019 2:01 PM EST Height 182.9 cm (6') 06/15/2019 2:01 PM EST Body Mass Index 35.94 06/15/2019 2:01 PM EST documented in this encounter Patient Instructions Patient InstructionsMarcela Lugo NP - 06/15/2019 2:00 PM ESTReferral to pulmonary rehab - will see what's available in [facility]. Start with the patches PLUS gum or lozenges for cravings throughout the day. If this is not working, we can discuss wellbutrin or chantix prescription. Try the fidget spinner to keep your hands busy. Work on dietary changes for the cholesterol. Follow up in 3 months, and do fasting labs at that time to recheck cholesterol. Patient Education Quitting Smoking The Basics Written by the doctors and editors at [facility] What are the benefits of quitting smoking?Quitting smoking can lower your chances of getting or dying from heart disease, lung disease, kidney failure, infection, or cancer. It can also lower your chances of getting osteoporosis, a condition that makes your bones weak. Plus, quitting smoking can help your skin look younger and reduce the chances that you will have problems with sex. Quitting smoking will improve your health no matter how old you are, and no matter how long or how much you have smoked. What should I do if I want to quit smoking?The letters in the word "START" can help you remember the steps to take: S = Set a quit date. T = Tell family, friends, and the people around you that you plan to quit. A = Anticipate or plan ahead for the tough times you'll face while quitting. R = Remove cigarettes and other tobacco products from your home, car, and work. T = Talk to your doctor about getting help to quit. How can my doctor or nurse help?Your doctor or nurse can give you advice on the best way to quit. He or she can also put you in touch with counselors or other people you can call for support. Plus, your doctor or nurse can give you medicines to: Reduce your craving for cigarettes Reduce the unpleasant symptoms that happen when you stop smoking (called "withdrawal symptoms"). You can also get help from a free phone line (5-014-DWXZ-NOW) or go online to www.smokefree.gov. What are the symptoms of withdrawal?The symptoms include: Trouble sleeping Being irritable, anxious or restless Getting frustrated or angry Having trouble thinking clearly Some people who stop smoking become temporarily depressed. Some people need treatment for depression, such as counseling or antidepressant medicines. Depressed people might: No longer enjoy or care about doing the things they used to like to do Feel sad, down, hopeless, nervous, or cranky most of the day, almost every day Lose or gain weight Sleep too much or too little Feel tired or like they have no energy Feel guilty or like they are worth nothing Forget things or feel confused Move and speak more slowly than usual Act restless or have trouble staying still Think about or suicide If you think you might be depressed, see your doctor or nurse. Only someone trained in mental healthcan tell for sure if you are depressed. If you ever feel like you might hurt yourself, go straight to the nearest emergency department. Or you can call for an ambulance (in the [place] and [place], dial 9-1-1) or call your doctor or nurse right away and tell them it is an emergency. You can also reach the National Suicide Prevention Lifeline at 1- 556.558.2351 or www.suicidepreventionlifeline.org. How do medicines help you stop smoking?Different medicines work in different ways: Nicotinereplacement therapy eases withdrawal and reduces your body's craving for nicotine, the main drug found in cigarettes. There are different forms of nicotine replacement, including skin patches, lozenges, gum, nasal sprays, and "puffers" or inhalers. Many can be bought without a prescription, while others might require one. Bupropion is a prescription medicine that reduces your desire to smoke. This medicine is sold under the brand names Zyban and Wellbutrin. It is also available in a generic version, which is cheaper than brand name medicines. Varenicline (brand names: Chantix, Champix) is a prescription medicine that reduces withdrawal symptoms and cigarette cravings. If you think you'd like to take varenicline and you have a history of depression, anxiety, or heart disease, discuss this with your doctor or nurse before taking the medicine. Varenicline can also increase the effects of alcohol in some people. It's a good idea to limitdrinking while you're taking it, at least until you know how it affects you. How does counseling work?Counseling can happen during formal office visits or just over the phone. A counselor can help you: Figure out what triggers your smoking and what to do instead Overcome cravings Figure out what went wrong when you tried to quit before What works best?Studies show that people have the best luck at quitting if they take medicines to help them quit and work with a counselor. It might also be helpful to combine nicotine replacement with one of the prescription medicines that help people quit. In some cases, it might even make sense to take bupropion and varenicline together. What about e-cigarettes?Sometimes people wonder if using electronic cigarettes, or "e-cigarettes," might help them quit smoking. Using e- cigarettes is also called "vaping." Doctors do notrecommend e-cigarettes in place of medicines and counseling. That's because e-cigarettes still contain nicotine as well as other substances that might be harmful. It's not clear how they can affect a person's health in the [employer]. Will I gain weight if I quit?Yes, you might gain a few pounds. But quitting smoking will have a much more positive effect on your health than weighing a few pounds more. Plus, you can help prevent some weight gain by being more active and eating less. Taking the medicine bupropion might help control weight gain. What else can I do to improve my chances of quitting?You can: Start exercising. Stay away from smokers and places that you associate with smoking. If people close to you smoke, ask them to quit with you. Keep gum, hard candy, or something to put in your mouth handy. If you get a craving for a cigarette, try one of these instead. Don't give up, even if you start smoking again. It takes most people a few tries before they succeed. What if I am and I smoke?If you are , it's really important for the health of your baby that you quit. Ask your doctor what options you have, and what is safest for your baby. All topics are updated as new evidence becomes available and our peer review process is complete. This topic retrieved from [employer] on: Apr 24, 2019. Topic 58371 Version 17.0 Release: 27.4.3 - C27.271 [employer]. and/or its affiliates.All rights reserved. Consumer Information Use and Disclaimer This information is not specific medical advice and does not replace information you receive from your health care provider. This is only a brief summary of general information. It does NOT include allinformation about conditions, illnesses, injuries, tests, procedures, treatments, therapies, discharge instructions or life-style choices that may apply to you. You must talk with your health care provider for complete information about your health and treatment options. This information should not beused to decide whether or not to accept your health care provider's advice, instructions or recommendations. Only your health care provider has the knowledge and training to provide advice that is right for you.The use of [employer] content is governed by the [employer] Terms of Use. 2019 [employer]. All rights reserved. Copyright 20195[employer]. and/or its affiliates.All rights reserved. Patient Education Chronic Obstructive Pulmonary Disease (COPD), Including Emphysema The Basics Written by the doctors and editors at [facility] What is COPD?COPD is a lung disease that makes it hard to breathe. In people with COPD, the airways (the branching tubes that carry air within the lungs) become narrow and damaged (figure1). This makes people feel out of breath and tired. COPD can be a serious illness. It cannot be cured and can get worse over time. But there are treatments that can help. You might have heard COPD referred to as "chronic bronchitis" or "emphysema." These are types of COPD. Why did I get COPD?The most common cause of COPD is smoking. Smoke can damage the lungs forever and cause COPD. People can also get COPD from breathing in toxic fumes or gases. In rare cases, COPD is caused by a genetic problem. A blood test can check for this. What are the symptoms of COPD?At first, COPD often causes no symptoms. As it gets worse it can make you: Feel short of breath, especially when you are moving around Wheeze (make a whistling or squeaking noise as you breathe) Cough and spit up phlegm (mucus) People who have COPD are also at increased risk for: Infections, such as pneumonia Lung cancer Heart problems Is there a test for COPD?Yes. Your doctor or nurse can give you a test called "spirometry" to check for COPD. During spirometry, you take a deep breath and then blow out as fast and hard as you can into a tube. A machine connected to the tube measures how much air you can blow out of your lungs and how fast you can blow. If the results of your spirometry are not normal, you will get a medicine in an inhaler to see if your breathing gets better. Then after a few minutes, you will repeat the spirometry. This will help the doctor or nurse find out if your problem is caused by COPD or another lung problem, such as asthma.People with asthma usually get normal results after they use an inhaler. People with COPD do not. Will I need other tests?Your doctor might order other tests, too. These can check to see if other problems besides COPD might be causing your symptoms. They can also look for some of the problems that COPD can lead to. Tests you might get include: A blood test for a genetic problem called "antitrypsin deficiency" that can cause COPD. A chest X-ray An electrocardiogram (also called an "ECG") This test measures the electrical activity in your heart. A low-dose CT scan This is an imaging test used to screen for lung cancer. (Imaging tests create pictures of the inside of the body.) Your doctor or nurse might suggest lung cancer screening depending on your age, how much you have smoked in the past, and whether you still smoke. Is there anything I can do to feel better?Yes. Here are 2 important things you should do: Stop smoking! If you smoke, the most important thing you can do for your COPD is to quit. It does not matter how long you have smoked or how much you smoke. Quitting will slow your disease and help you feel better. This can be hard, but your doctor or nurse can help you figure out the best way toquit. Get the flu shot every fall, and the pneumonia vaccine at least once. Infections like the flu and pneumonia can be very hard on your lungs. It's important to try to prevent them. How is COPD treated?There are 4 main types of treatment for COPD: Medicines There are a lot of medicines to treat COPD. Most people use inhalers that helpopen up their airways or decrease swelling in the airways. Often people need more than one inhaler at a time. You might need to take a steroid medicine in a pill for a flare of COPD. This steroid medicine is not the kind that athletes take to build up muscle. Oxygen If the disease gets worse, you might need to use oxygen. Your doctor or nurse cantest your blood oxygen to see if you need this. Pulmonary rehab In pulmonary rehab, you learn to improve your symptoms in new ways. You learn exercises and ways to breathe that can help ease symptoms. Even if you don't do a pulmonary rehab program, staying active can help your breathing. Surgery and endobronchial valves Rarely, people with the emphysema type of severe COPD will need surgery. Surgery removes the most damaged parts of the lung. This surgery can reduce symptoms, but it does not always work. Also rarely, doctors will place small "endobronchial valves" in the damaged airways. This can help the healthier parts of the lungs work better. The valves are placed using a thin tube that goes down your throat, called a "bronchoscope. " All topics are updated as new evidence becomes available and our peer review process is complete. This topic retrieved from [employer]nary on: Apr 24, 2019. Topic 19643 Version 14.0 Release: 27.4.3 - C27.271 [employer] and/or its affiliates.All rights reserved. figure 1: Normal lungs The lungs sit in the chest, inside the ribcage. They are covered with a thin membrane called the "pleura." The windpipe, or trachea, branches into two smaller airways called the left and right "bronchi." The space between the lungs is called the "mediastinum." Lymph nodes are located within and aroundthe lungs and mediastinum. Graphic 44591 Version 13.0 Consumer Information Use and Disclaimer This information is not specific medical advice and does not replace information you receive from your health care provider. This is only a brief summary of general information. It does NOT include allinformation about conditions, illnesses, injuries, tests, procedures, treatments, therapies, discharge instructions or life-style choices that may apply to you. You must talk with your health care provider for complete information about your health and treatment options. This information should not beused to decide whether or not to accept your health care provider's advice, instructions or recommendations. Only your health care provider has the knowledge and training to provide advice that is right for you.The use of [employer] content is governed by the [employer] Terms of Use. 2019 [employer]. All rights reserved. Copyright 20195[employer]. and/or its affiliates.All rights reserved. documented in this encounter Progress Notes Marcela Lugo NP - 06/15/2019 2:00 PM EST PATIENT: John Rivas : 1960 DATE OF SERVICE: 06/15/2019 CHIEF COMPLAINT: Chief Complaint Patient presents with Follow Up PFT and cholesterol Subjective HISTORY OF PRESENT ILLNESS: John Rivas is a 58-y.o. male. HPI Currently smoking 1/2 - 1 ppd. Has been smoking for 40 years. Recent PFT showed copd. He is interested in smoking cessation now. Has never attemped to quit in the past. No current symptoms except increased cough that has been ongoing. Recent LDL increased. He used to eat fairly healthy but recently has been eating a lot of fast foodand feels this may be contributing to the increased lipids. Fast food is quick and not expensive for him. Past Medical History: Diagnosis Date BMI 35.0-35.9,adult 06/21/2014 sustained wt reduction with portion control and sustained routine exercise. COPD (chronic obstructive pulmonary disease) (HCC) 06/13/2019 GERD (gastroesophageal reflux disease) Mixed hyperlipidemia 06/16/2019 Tobacco use disorder 06/08/2019 Family History Problem Relation Age of Onset [...] No Known Problems Daughter Diabetes Maternal Grandmother Current Outpatient Medications Medication Sig albuterol HFA (VENTOLIN) 108 (90 Base) MCG/ACT Inhalation Aero Soln Take 2 Puffs by inhalation EVERY FOUR HOURS NEEDED (shortness of breath/wheezing) . Spacer/Aero-Holding Chambers (PRO COMFORT SPACER ADULT) Does not apply Misc 1 Each by Does not apply route NEEDED (with inhaler). No current facility-administered medications for this visit. [...] file Gets together: Not on file Attends hindu service: Not on file Active member of [...] of the house. 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 HENT: Negative for congestion, sinus pain and sore throat. Respiratory: Positive for cough. Negative for sputum production, shortness of breath and wheezing. Cardiovascular: Negative for chest pain and palpitations. Objective PHYSICAL EXAM: VITALS: BP 136/62 (BP Location: Left arm, Patient Position: Sitting) | Pulse 82 | Ht 6' (1.829 m) | Wt 265 lb (120.2 kg) | SpO2 95% | BMI 35.94 kg/m Body mass index is 35.94 kg/m. Physical Exam Vitals signs and nursing note reviewed. Constitutional: General: He is not in acute distress. Appearance: Normal appearance. He is well-developed. Cardiovascular: Rate and Rhythm: Normal rate and regular rhythm. Heart sounds: Heart sounds are distant. No murmur. No friction rub. No gallop. Pulmonary: Effort: Pulmonary effort is normal. No respiratory distress. Breath sounds: Decreased air movement present. Decreased breath sounds present. Neurological: Mental Status: He is alert. Psychiatric: Mood and Affect: Mood and affect normal. Speech: Speech normal. Behavior: Behavior normal. Behavior is cooperative. ASSESSMENT / IMPRESSION: ICD-9-CM ICD-10-CM 1. Chronic obstructive pulmonary disease, unspecified COPD type ([facility]) 496 J44.9 PULMONARY REHAB REFERRAL 2. Tobacco use disorder 305.1 F17.200 3. Mixed hyperlipidemia 272.2 E78.2 Plan 1. Chronic obstructive pulmonary disease, unspecified COPD type (HCC) Smoking cessation - will do patches plus gum or lozenges. If he feels he needs medication will return to discuss wellbutrin or chantix. - PULMONARY REHAB REFERRAL; Future Referral to pulmonary rehab - will see what's available in [facility]. Start with the patches PLUS gum or lozenges for cravings throughout the day. If this is not working, we can discuss wellbutrin or chantix prescription. Try the fidget spinner to keep your hands busy. 2. Tobacco use disorder Nicotine addiction. We discussed the importance of smoking cessation as well as different ways to approach it. The patient is ready to set action plan and implement, patches and gum, lifestyle and behavioral changes. A total of 15 minutes was spent with the patient today talking about smoking cessation. 3. Mixed hyperlipidemia He is going to work on diet and smoking cessation. Will stop eating fast food and go back to previous healthier diet. Will recheck in about 3 months, consider statin if still high at that point. Author: Marcela Lugo NP 06/16/2019 09:57 documented in this encounter Plan of Treatment Date Type Specialty Care Team Description 09/17/2019 Office Visit Family Practice Christy Rosado MD [address] [place] [address] [phone] Name Type Priority Associated Diagnoses Order Schedule PULMONARY REHAB Referral Routine Chronic obstructive Expected: 06/15/2019, REFERRAL pulmonary disease, Expires: 06/15/2020 unspecified COPD type (HCC) Health Maintenance Due Date Last Done Comments ZOSTER IMMUNIZATION SERIES 2010 (1 of 2) LUNG CANCER SCREENING 2015 DEPRESSION SCREENING 05/22/2020 05/22/2019 DIABETES SCREENING 06/08/2020 06/08/2019, 05/18/2018, 05/18/2018, Additional history exists LIPID DISORDER SCREENING 06/08/2024 06/08/2019, 05/18/2018, 05/10/2016 COLONOSCOPY SCREENING 08/22/2028 08/22/2018 INFLUENZA VACCINE Completed 05/22/2019, 05/10/2016 PNEUMOCOCCAL 0-64 YRS Completed 05/22/2019 HPV IMMUNIZATION SERIES Aged Out No longer eligible based on patient's age to complete this topic MENINGOCOCCAL VACCINE IMM Aged Out No longer eligible based on patient's age to complete this topic documented as of this encounter Goals Goal Patient Goal Associated Recent Patient-Stated? Author Type Problems Progress Smoking COPD No Janneth Lugo NP Note: This is an individualized treatment (COPD) goal for John Rivas: Quit smoking immediately! Your provider has information and resources that may help you to quit. Keep immunizations current Lifestyle No Marcela Lugo NP Note: This is an individualized lifestyle goal for John Rivas: Please be sure to keep up-to-date on recommended immunizations. For example, this would include a yearly influenza vaccine. Immunization status can be seen by looking at the Health Maintenance sections of your e[employer], Plan of Care, and any After Visit Summaries. Take all prescribed medications as Self-management No Marcela Lugo NP directed Note: This is an individualized self-management goal for John Rivas: Please take all prescribed medications as directed. 1. Do not skip doses. If you cannot afford your medications, talk with your doctor. 2. Use a pill reminder system such as a pill box if needed. Your pharmacist can help you with this. 3. Contact your Pharmacy 5 days before your medication runs out. If you cannot take your medications for any reasons, talk with your doctor. 4. Please bring all of your medication bottles and inhalers (or a list of all your medications/inhalers) with you to every visit. Potential barriers to meeting all of your care plan goals will continue to be addressed on an ongoing basis. documented as of this encounter Results Not on filedocumented in this encounter Visit Diagnoses Diagnosis Chronic obstructive pulmonary disease, unspecified COPD type (HCC) - Primary Tobacco use disorder Mixed hyperlipidemia documented in this encounter Insurance Payer Benefit Plan / Subscriber ID Effective Dates Phone Address Type Group [facility] xxxxxxxxxxxx 2015-Present Blue Cross/Blue Shield Guarantor Name Account Type Relation to Date of Phone Billing Patient Address John Rivas Personal/Family 1960 [address] [phone] [place], [place] ([place]) [address] documented as of this encounter
--- OUTSIDE RECORDS SUMMARY | 2019-06-16 19:54 | XMS REPORT | Summary of Care ---
:1960 Author Organization [facility] Address [address] [place] [address] Care Team Providers Name Role Phone Christy Rosado MD Primary Care Provider Reason for Visit Reason Comments Dizziness since flu shot 05/22/19, light headed Encounter Details Date Type Department Care Team Description 05/24/2019 Office Visit [facility] [place], Postvaccination fever Practice [facility]rano (Primary Dx) [address] [place] [address] [place] [address] [phone] Allergies No Known Allergiesdocumented as of this encounter (statuses as of 05/24/2019) Medications No known medicationsdocumented as of this encounter (statuses as of 05/24/2019) Active Problems Problem Noted Date Gastroesophageal reflux disease without esophagitis 05/22/2019 BMI 30.0-30.9,adult 06/21/2014 Overview: sustained wt reduction with portion control and sustained routine exercise. documented as of this encounter (statuses as of 05/24/2019) Immunizations Name Administration Dates Next Due Hepatitis B Vaccine Adult 03/22/2016, 10/20/2015, 09/08/2015 Influenza (IM) Preservative Free 05/22/2019, 05/10/2016 PNEUMOCOCCAL POLYSACCHARIDE VACCINE 05/22/2019 TDAP Vaccine 05/10/2016 documented as of this encounter Social History Tobacco Use Types Packs/Day Years Used Date Current Every Day Smoker Cigarettes 0.75 40 Smokeless Tobacco: Never Used Tobacco Cessation: Ready to Quit: No; Counseling Given: Yes Comments: 2 ppd for 10 years then [...] Sign Reading Time Taken Comments Blood Pressure 130/86 05/24/2019 11:49 AM EDT Pulse 101 05/24/2019 11:16 AM EDT Temperature 38.7 05/24/2019 11:16 AM C (101.7 EDT F) Respiratory Rate - - Oxygen Saturation 97% 05/24/2019 11:16 AM EDT Inhaled Oxygen Concentration - - Weight - - Height - - Body Mass Index - - documented in this encounter Patient Instructions Patient InstructionsMarcela Lugo NP - 05/24/2019 11:20 AM EDTStay hydrated - drink plenty of water - aim for 8 glasses a day. Tylenol 650 mg every 4-6 hours as needed. Can alternate with ibuprofen 600 mg every 6-8 hours. (Basically alternate tylenol and ibuprofen every 3 hours). If you still have fever on Tuesday, please return for re-eval. OR if you develop other symptoms of illness - chest congestion, coughing, sinuses etc. documented in this encounter Progress Notes Marcela Lugo NP - 05/24/2019 11:20 AM EDT PATIENT: John Rivas : 1960 DATE OF SERVICE: 05/24/2019 CHIEF COMPLAINT: Chief Complaint Patient presents with Dizziness since flu shot 05/22/19, light headed Subjective HISTORY OF PRESENT ILLNESS: John iRvas is a 58-y.o. male. HPI He had physical on Tuesday, had flu and pneumonia vaccine - started to feel hot and dizzy yesterday at work, had fever. Has been taking tylenol 2 tablets every 6 hours for fever and malaise. Last dosetylenol at 8am this morning. Besides the fever and lightheaded, no other symptoms - no chest pain shortness of breath sinuses ok, nose ears throat ok. Tmax 100.3 at home during the night last night.Nothing higher. Drinking water, had 2 glasses yesterday, one today so far. Past Medical History: Diagnosis Date BMI 30.0-30.9,adult [...] file Gets together: Not on file Attends confucianist service: Not on file Active member of [...] of the house. Waste management--recycling employee and alf Pets: none Over the last 2 weeks, have you been feeling down, depressed, anxious, or hopeless?: 0 Over the past 2 weeks, have you felt little interest or pleasure in doing things ?: 0 REVIEW OF SYSTEMS: Review of Systems Constitutional: Positive for chills, fever and malaise/fatigue. HENT: Negative for congestion, sinus pain and sore throat. Respiratory: Negative for cough, shortness of breath and wheezing. Cardiovascular: Negative for chest pain and palpitations. Gastrointestinal: Negative for abdominal pain, constipation, diarrhea, nausea and vomiting. Genitourinary: Negative for dysuria, frequency and urgency. Musculoskeletal: Body aches Neurological: Positive for dizziness. Negative for headaches. Objective PHYSICAL EXAM: VITALS: BP 130/86 | Pulse 101 | Temp (!) 101.7 F (38.7 C) (Tympanic) | SpO2 97% There is no height or weight on file to calculate BMI. Physical Exam Vitals signs and nursing note reviewed. Constitutional: General: He is not in acute distress. Appearance: Normal appearance. He is well-developed. He is not ill-appearing or toxic-appearing. HENT: Right Ear: Tympanic membrane, ear canal and external ear normal. No mastoid tenderness. Tympanic membrane is not erythematous, retracted or bulging. Left Ear: Tympanic membrane, ear canal and external ear normal. No mastoid tenderness. Tympanic membrane is not erythematous, retracted or bulging. Nose: Nose normal. No mucosal edema. Right Sinus: No maxillary sinus tenderness or frontal sinus tenderness. Left Sinus: No maxillary sinus tenderness or frontal sinus tenderness. Mouth/Throat: Mouth: Mucous membranes are moist. Pharynx: Oropharynx is clear. Uvula midline. No oropharyngeal exudate or posterior oropharyngeal erythema. Tonsils: No tonsillar exudate. Eyes: Conjunctiva/sclera: Conjunctivae normal. Cardiovascular: Rate and Rhythm: Normal rate and regular rhythm. Heart sounds: Normal heart sounds. Pulmonary: Effort: Pulmonary effort is normal. Breath sounds: Normal breath sounds. Lymphadenopathy: Head: Right side of head: No submental, submandibular or tonsillar adenopathy. Left side of head: No submental, submandibular or tonsillar adenopathy. Cervical: No cervical adenopathy. Right cervical: No superficial cervical adenopathy. Left cervical: No superficial cervical adenopathy. Upper Body: Right upper body: No supraclavicular adenopathy. Left upper body: No supraclavicular adenopathy. Neurological: Mental Status: He is alert. Psychiatric: Behavior: Behavior is cooperative. ASSESSMENT / IMPRESSION: ICD-9-CM ICD-10-CM 1. Postvaccination fever 780.63 R50.83 Plan 1. Postvaccination fever tmax was 100.9, this is expected response to vaccines. No other symptoms of illness. Work note given. Stay hydrated - drink plenty of water - aim for 8 glasses a day. Tylenol 650 mg every 4-6 hours as needed. Can alternate with ibuprofen 600 mg every 6-8 hours. (Basically alternate tylenol and ibuprofen every 3 hours). If you still have fever on Tuesday, please return for re-eval. OR if you develop other symptoms of illness - chest congestion, coughing, sinuses etc. Author: Marcela Lugo NP 05/24/2019 19:08 documented in this encounter Plan of Treatment Date Type Specialty Care Team Description 06/08/2019 Lab Internal Medicine 06/08/2019 Nurse/Clinical Support Internal Medicine Health Maintenance Due Date Last Done Comments [...] this topic documented as of this encounter Results Not on filedocumented in this encounter Visit Diagnoses Diagnosis Postvaccination fever - Primary documented in this encounter Insurance Payer Benefit Plan / Subscriber ID Effective Dates Phone Address Type Group BCBS NATIONAL BCBS NATIONAL xxxxxxxxxx 2015-Present Blue Cross/Blue Shield Guarantor Name Account Type Relation to Date of Phone Billing Patient Address John Rivas Personal/Family 1960 [address] [phone] [place], [place] (Work) [id number] documented as of this encounter"
[2019-06-16] MEDS ORDERED: Pantoprazole IV* 40 MG IV ONE (20:08)
--- NOTE | 2019-06-16 20:09 | ED ---
Abdominal Pain/Male - HPI Summary HPI Summary: This patient is a 58 year old male presenting to [facility] with a chief complaint of epigastric pain. He states he has been intermittently experiencing the pain over the last 36 hours. He reports a Hx of gastritis. Other than hernia he has not had abdominal surgeries. He states he has not had this kind of pain in this area before. He denies nausea and diarrhea. - History of Current Complaint Chief Complaint: EDAbdPain Stated Complaint: ABD PAIN PER PT Time Seen by Provider: 06/16/19 20:00 Hx Obtained From: Patient Onset/Duration: Lasting Hours, Lasting Days Pain Intensity: 9 Pain Scale Used: 0-10 Numeric Location: Epigastric - Allergies/Home Medications Allergies/Adverse Reactions: Allergies Allergy/AdvReac Type Severity Reaction Status Date / Time No Known Allergies Allergy Verified 01/23/19 07:38 Home Medications: Home Medications Albuterol Sulfate [Ventolin Hfa] 2 inh PO SEE INSTRUCTIONS 06/16/19 [History Confirmed 06/16/19] PMH/Surg Hx/FS Hx/Imm Hx Endocrine/Hematology History: Denies: Hx Diabetes Cardiovascular History: Denies: Hx Hypertension - Surgical History Surgery Procedure, Year, and Place: Gastric hernia, meniscus Infectious Disease History: No Infectious Disease History: Denies: Traveled Outside the [place] in Last 30 Days - Family History Known Family History: Positive: Hypertension - Social History Alcohol Use: None Hx Substance Use: No Substance Use Type: Reports: None Hx Tobacco Use: Yes Smoking Status (MU): Heavy Every Day Tobacco Smoker Type: Cigarettes Amount Used/How Often: 1 PPD Review of Systems Negative: Fever Positive: Abdominal Pain. Negative: Diarrhea, Nausea All Other Systems Reviewed And Are Negative: Yes Physical Exam - Summary Physical Exam Summary: Appearance: The patient is well-nourished in no acute distress and in no acute pain. Skin: The skin is warm and dry, and skin color reflects adequate perfusion. HEENT: The head is normocephalic and atraumatic. The pupils are equal and reactive. The conjunctivae are clear and without drainage. Nares are patent and without drainage. Mouth reveals moist mucous membranes, and the throat is without erythema and exudate. The external ears are intact. The ear canals are patent and without drainage. The tympanic membranes are intact. Neck: The neck is supple with full range of motion and non-tender. There are no carotid bruits. There is no neck vein distension. Respiratory: Chest is non-tender. Lungs are clear to auscultation and breath sounds are symmetrical and equal. Cardiovascular: Heart is regular rate and rhythm. There is no murmur or rub auscultated. There is no peripheral edema and pulses are symmetrical and equal. Abdomen: The abdomen is soft and tender at the epigastric area and RUQ, with mild rebound. There are normal bowel sounds heard in all four quadrants and there is no organomegaly palpated. Musculoskeletal: There is no back tenderness noted. Extremities are non-tender with full range of motion. There is good capillary refill. There is no peripheral edema or calf tenderness elicited. Neurological: Patient is alert and oriented to person, place and time. The patient has symmetrical motor strength in all four extremities. Cranial nerves are grossly intact. Deep tendon reflexes are symmetrical and equal in all four extremities. Psychiatric: The patient has an appropriate affect and does not exhibit any anxiety or depression. Triage Information Reviewed: Yes Vital Signs On Initial Exam: Initial Vitals Temp Pulse Resp BP Pulse Ox 98.3 F 100 18 136/90 96 06/16/19 19:45 06/16/19 19:45 06/16/19 19:45 06/16/19 19:45 06/16/19 19:45 Vital Signs Reviewed: Yes Procedures - Sedation Patient Received Moderate/Deep Sedation with Procedure: No Diagnostics - Vital Signs Vital Signs Temp Pulse Resp BP Pulse Ox 06/16/19 19:45 98.3 F 100 18 136/90 96 - Laboratory Result Diagrams: 06/16/19 20:37 06/16/19 20:37 Lab Statement: Any lab studies that have been ordered have been reviewed, and results considered in the medical decision making process. - Ultrasound No standard instances Ultrasound Interpretation Completed By: Radiologist Summary of Ultrasound Findings: Gallbladder: No sonographic findings to correlate with patient's symptomolgoy. ED Provider has reviewed this report. Abdominal Pain Male Course/Dx - Course Course Of Treatment: Mr. Rivas presented with epigastric and right upper quadrant pain that was quite severe. He was tender and her gallbladder ultrasound was obtained and unremarkable. His labs are okay but he didn't improve with Protonix IV and therefore a CT scan has been ordered and is pending at this time. He is given Dilaudid and Zofran for pain as well as IV fluids. - Diagnoses Provider Diagnoses: Gastroenteritis Discharge ED - Sign-Out/Discharge Documenting (check all that apply): Sign-Out Patient Signing out patient TO: John Kay - Discharge Plan Condition: Good Disposition: HOME Prescriptions: Dicyclomine CAP* [Bentyl CAP*] 10 mg PO TID PRN #15 cap PRN Reason: abdominal pain Patient Education Materials: Gastroenteritis (ED) Referrals: Marcela Lugo, [employer] [Primary Care Provider] - 3 Days (if not improving) - Billing Disposition and Condition Condition: GOOD Disposition: Home - Attestation Statements Document Initiated by Scribe: Yes Documenting Scribe: Ronny Pedroza Provider For Whom Scribe is Documenting (Include Credential): John Betancur MD Scribe Attestation: Ronny Lorenzo scribed for John Betancur MD on 06/17/19 at 2100. Scribe Documentation Reviewed: Yes Provider Attestation: The documentation as recorded by the Ronny cornelius accurately reflects the service I personally performed and the decisions made by me, John Betancur MD Status of Scribe Document: Viewed
[2019-06-16 20:43] LABS: ABS Basophils 0.1 10^3/ul (0-0.2); ABS Eosinophils 0.2 10^3/ul (0-0.6); ABS Lymphocytes 1.8 10^3/ul (1.0-4.8); ABS Monocytes 0.8 10^3/ul (0-0.8); ABS Neutrophils 7.6 10^3/ul (1.5-7.7); Eosinophil % 1.9 %; Hematocrit 43 % (42-52); Hemoglobin 14.6 g/dL (14.0-18.0); Lymphocyte % 17.2 %; Mean Corpuscular HGB Conc 34 g/dL (31-36); Mean Corpuscular Hemoglobin 30 pg (27-31); Mean Corpuscular Volume 91 fL (80-94); Platelet Count 263 10^3/uL (150-450); Red Blood Count 4.78 10^6 /uL (4.18-5.48); Red Cell Distribution Width 14 % (10-15); White Blood Count 10.4 10^3/uL (3.5-10.8)
[2019-06-16 21:03] LABS: Albumin 3.8 g/dL (3.2-5.2); Albumin/Globulin Ratio 1.2 (1-3); BUN/Creatinine Ratio 13.5 (8-20); C Reactive Protein 12.82 mg/L (<8.01); EGFR African American 106.2 (>60); EGFR Non-African American 87.8 (>60); Globulin 3.1 g/dL (2-4); Potassium 3.9 mmol/L (3.5-5.0); Total Bilirubin 1.1 mg/dL (0.2-1.0); Total Protein 6.9 g/dL (6.4-8.9)
[2019-06-16] MEDS ORDERED: HYDROmorphone INJ1* 1 MG/ML SYRINGE IV SLOW PU ONE (21:41)
[2019-06-16] MEDS ORDERED: Ondansetron INJ* 2 MG/ML VIAL IV ONE (21:41)
--- NOTE | 2019-06-16 22:09 | ED ---
Progress - Progress Note Progress Note: This patient was signed out from Dr. Betancur to Dr. Kay at 2200 06/16/19, pending disposition, awaiting Abdomen/Pelvis CT results. Abdomen/Pelvis CT reveals Findings of infectious enteritis. Inflammatory bowel disease such as Crohn's considered less likely. ED Physician has reviewed this imaging report. Re-Evaluation - Re-Evaluation First Eval Re-Evaluation Time: 00:13 Comment: Pt will be discharged Course/Dx - Course Course Of Treatment: This patient was signed out from Dr. Betancur to Dr. Kay at 2200 06/16/19, pending disposition, awaiting Abdomen/Pelvis CT results. Abdomen/Pelvis CT reveals. Findings of infectious enteritis. Inflammatory bowel disease such as Crohn's. considered less likely. ED Physician has reviewed this imaging report. The patients condition is stable and will be discharged to home with Dx of gastroenteritis. - Diagnoses Provider Diagnoses: Gastroenteritis Discharge ED - Sign-Out/Discharge Documenting (check all that apply): Patient Departure - discharge - Discharge Plan Condition: Good Disposition: HOME Prescriptions: Dicyclomine CAP* [Bentyl CAP*] 10 mg PO TID PRN #15 cap PRN Reason: abdominal pain Patient Education Materials: Gastroenteritis (ED) Referrals: Marcela Lugo, [facility] [Primary Care Provider] - 3 Days (if not improving) - Billing Disposition and Condition Condition: GOOD Disposition: Home - Attestation Statements Document Initiated by Jordi: Yes Documenting Scribe: Chiara Yoder Provider For Whom Jordi is Documenting (Include Credential): Dr. John Kay MD Scribe Attestation: Chiara Lorenzo scribed for Dr. John Kay MD on 06/19/19 at 1746. Scribe Documentation Reviewed: Yes Provider Attestation: The documentation as recorded by the Chiara cornelius accurately reflects the service I personally performed and the decisions made by me, Dr. John Kay MD Status of Scribe Document: Viewed
[2019-06-16 23:37] LABS: Urine Appearance Cloudy; Urine Color Yellow
[2019-06-16 23:38] LABS: Urine Specific Gravity 1.035 (1.010-1.030); Urine Urobilinogen Negative (Negative)
[2019-06-16 23:39] LABS: Urine Blood Negative (Negative); Urine Ketones Negative (Negative); Urine Nitrite Negative (Negative); Urine Protein Negative (Negative)
[2019-06-16 23:40] LABS: Urine Bilirubin Negative (Negative); Urine Glucose Negative (Negative)
[2019-06-17] MEDS ORDERED: Dicyclomine CAP* 10 MG PO ONE (00:55)
[2019-06-17 01:24] VITALS: BP 125/92
== END 2019-06-17 00:30 | disposition home or self-care (01) ==
LOC: ED 19:38
DX: K21.9 Gastro-esophageal reflux disease without esophagitis (principal); Z79.899 Other long term (current) drug therapy; F17.210 Nicotine dependence, cigarettes, uncomplicated; R10.9 Unspecified abdominal pain
CPT/HCPCS: 36415; 74176; 76705; 80053; 81003; 83605; 83690; 84484; 85025; 86140; 99283; A9270-GY; J1170; J2405

== ENCOUNTER 2019-06-18 05:51 | Emergency (ER) | payer BC ==
--- NOTE | 2019-06-18 06:12 | ED ---
Abdominal Pain/Male - HPI Summary HPI Summary: Patient is a 50-year-old male who presents emergency department for ongoing abdominal pain, vomiting and diarrhea 3 days. Patient was seen in the ED on Tuesday for abdominal pain and cramping. He underwent blood work, CT scan and gallbladder ultrasound with findings suggestive of colitis. Patient was prescribed Bentyl for abdominal cramping which he states helps temporarily. Patient states last night he developed vomiting and diarrhea and presents for reexamination. Patient denies fever, chills, chest pain, shortness of breath, passing blood in stools or vomit. No significant past medical history. Denies sick contacts. Symptoms are moderate in severity. No current modifying factors. - History of Current Complaint Chief Complaint: EDAbdPain Stated Complaint: ABD PAIN PER PT Time Seen by Provider: 06/18/19 06:04 Hx Obtained From: Patient Pain Intensity: 7 - Allergies/Home Medications Allergies/Adverse Reactions: Allergies Allergy/AdvReac Type Severity Reaction Status Date / Time No Known Allergies Allergy Verified 06/18/19 05:54 PMH/Surg Hx/FS Hx/Imm Hx Previously Healthy: Yes Endocrine/Hematology History: Denies: Hx Diabetes Cardiovascular History: Denies: Hx Hypertension - Surgical History Surgery Procedure, Year, and Place: Gastric hernia, meniscus Infectious Disease History: No Infectious Disease History: Denies: Traveled Outside the [place] in Last 30 Days - Family History Known Family History: Positive: Hypertension, Non-Contributory - Social History Occupation: Employed Full-time Lives: With Family Alcohol Use: None Hx Substance Use: No Substance Use Type: Reports: None Hx Tobacco Use: Yes Smoking Status (MU): Heavy Every Day Tobacco Smoker Type: Cigarettes Amount Used/How Often: 1 PPD Review of Systems Constitutional: Negative Negative: Fever, Chills Cardiovascular: Negative Negative: Palpitations, Chest Pain Respiratory: Negative Negative: Shortness Of Breath, Cough Positive: Abdominal Pain, Vomiting, Diarrhea Genitourinary: Negative Neurological: Negative All Other Systems Reviewed And Are Negative: Yes Physical Exam Triage Information Reviewed: Yes Vital Signs On Initial Exam: Initial Vitals Temp Pulse Resp BP Pulse Ox 97.9 F 111 15 133/99 98 06/18/19 05:52 06/18/19 05:52 06/18/19 05:52 06/18/19 05:52 06/18/19 05:52 Vital Signs Reviewed: Yes Appearance: Positive: Well-Appearing - Pt. lying on bed in NAD. Appears to feel unwell but nontoxic. Skin: Positive: Warm, Dry Head/Face: Positive: Normal Head/Face Inspection Eyes: Positive: Normal, EOMI Neck: Positive: Supple Respiratory/Lung Sounds: Positive: Breath Sounds Present, Other - Faint wheeze throughout. Cardiovascular: Positive: Normal, RRR Abdomen Description: Positive: Other: - Abd. is soft with diffuse tenderness on palpation. No rebound or guarding. Bowel Sounds: Positive: Hypoactive Neurological: Positive: Normal, CN Intact II-III Psychiatric: Positive: Affect/Mood Appropriate Procedures - Sedation Patient Received Moderate/Deep Sedation with Procedure: No Diagnostics - Vital Signs Vital Signs Temp Pulse Resp BP Pulse Ox 06/18/19 05:52 97.9 F 111 15 133/99 98 - Laboratory Result Diagrams: 06/18/19 06:55 06/18/19 06:55 Lab Statement: Any lab studies that have been ordered have been reviewed, and results considered in the medical decision making process. Abdominal Pain Male Course/Dx - Course Course Of Treatment: Pt. presenting with ongoing abd. cramping with new onset vomiting and diarrhea. Afebrile. Mildy tachycardic. Pt. given IV fliuds, zofran and morphine for pain. Will recheck labs. CT and U/S reviewed from yesterday. ECG done at 0636 shows a sinus rhythm of 88bpm, normal axis, no ST elevation or depression. CBC shows normal WBC. Small increase in CRP from 3 days ago. On re- exam pt. is feeling better and is tolerating PO fluids. Discussed with Dr. Farfan given pt. was seen over the weekend. Dr. Farfan agrees with [facility] and recommend GI f.u. given CT reading from yesterday. Zofran rx. Work excuse given. To increase fluids and rest. To call pcp today for close f.u with gi referral. Will return to er if sxs change or worsen. - Diagnoses Differential Diagnosis/HQI/PQRI: Appendicitis, Bowel Obstruction, Diverticulitis , Gall Bladder Disease, Peptic Ulcer Disease Provider Diagnoses: Gastroenteritis Discharge ED - Sign-Out/Discharge Documenting (check all that apply): Patient Departure - Discharge Plan Condition: Improved Disposition: HOME Prescriptions: Ondansetron HCl [Zofran] 4 mg PO Q6H #12 tablet Patient Education Materials: Gastroenteritis (ED) Forms: *Work Release Referrals: Marcela Lugo NP [Primary Care Provider] - Sudeep Nicole MD [Medical Doctor] - Additional Instructions: Call PCP today for a follow up appointment in 2-3 days for recheck and referral to GI if symptoms persist Medication as directed Increase fluids Clear liquid diet x 24 hours Return to ER if symptoms change or worsen - Billing Disposition and Condition Condition: IMPROVED Disposition: Home
[2019-06-18] MEDS ORDERED: NS 0.9% 1000 ML** 1,000 ML IV ONE (06:22)
[2019-06-18] MEDS ORDERED: Morphine 4 MG/ML VIAL (1 ml) 4 MG/ML VIAL IV ONE (06:22)
[2019-06-18] MEDS ORDERED: Ondansetron INJ* 2 MG/ML VIAL IV ONE (06:22)
[2019-06-18 07:05] LABS: ABS Basophils 0.1 10^3/ul (0-0.2); ABS Eosinophils 0.2 10^3/ul (0-0.6); ABS Lymphocytes 1.6 10^3/ul (1.0-4.8); ABS Monocytes 0.8 10^3/ul (0-0.8); ABS Neutrophils 6.8 10^3/ul (1.5-7.7); Hematocrit 42 % (42-52); Hemoglobin 14.8 g/dL (14.0-18.0); Lymphocyte % 17.2 %; Mean Corpuscular HGB Conc 35 g/dL (31-36); Mean Corpuscular Hemoglobin 31 pg (27-31); Mean Corpuscular Volume 90 fL (80-94); Mean Platelet Volume 8.4 fL (7.4-10.4); Platelet Count 240 10^3/uL (150-450); Red Blood Count 4.72 10^6 /uL (4.18-5.48); Red Cell Distribution Width 14 % (10-15); White Blood Count 9.5 10^3/uL (3.5-10.8)
[2019-06-18 07:22] LABS: ALT 9 U/L (7-52); AST 10 U/L (13-39); Albumin 3.7 g/dL (3.2-5.2); Albumin/Globulin Ratio 1.3 (1-3); Alkaline Phosphatase 53 U/L (34-104); Anion Gap 6 mmol/L (2-11); BUN/Creatinine Ratio 16.9 (8-20); Blood Urea Nitrogen 12 mg/dL (6-24); C Reactive Protein 34.39 mg/L (<8.01); CO2 Carbon Dioxide 25 mmol/L (22-32); Calcium 8.7 mg/dL (8.6-10.3); Chloride 102 mmol/L (101-111); EGFR African American 137.9 (>60); Globulin 2.9 g/dL (2-4); Glucose 101 mg/dL (70-100); Potassium 3.9 mmol/L (3.5-5.0); Sodium 133 mmol/L (135-145); Total Protein 6.6 g/dL (6.4-8.9)
[2019-06-18 08:31] LABS: Urine Appearance Clear; Urine Color Yellow
[2019-06-18 08:32] LABS: Urine Bilirubin Negative (Negative); Urine Blood Negative (Negative); Urine Glucose Negative (Negative); Urine Ketones 1+ (Negative); Urine Nitrite Negative (Negative); Urine Protein Negative (Negative); Urine Urobilinogen Negative (Negative)
[2019-06-18 08:33] VITALS: BP 132/94
== END 2019-06-18 08:25 | disposition home or self-care (01) ==
LOC: ED 05:51
DX: K52.9 Noninfective gastroenteritis and colitis, unspecified (principal); F17.210 Nicotine dependence, cigarettes, uncomplicated
CPT/HCPCS: 36415; 80053; 81003; 83605; 83690; 84484; 85025; 86140; 93005; 96361; 96374; 96375; 99282; J2270; J2405